=== PATIENT | male | born 1985 | race Caucasian/White ===

== ENCOUNTER 2020-10-05 17:56 | Inpatient (IN) | payer MEDICAID ==
[~2020-10-05] VITALS: Ht 190.5 cm; Wt 119.0 kg
[~2020-10-05 17:56] MED LIST: pantoprazole 40 MG vial IV SCH
--- NOTE | 2020-10-05 18:34 | NUR ---
PT BROUGHT INTO TRIAGE, TOLD REGISTRATION THE PT WAS "GETTING WORSE", VS RECHECK DONE. PT IS SLIGHTLY DIAPHORETIC
[2020-10-05 18:37] LABS: BASOPHILS # (AUTO) 0.1 X10'3 (0-0.2); BASOPHILS % (AUTO) 0.6 % (0-1); EOSINOPHILS # (AUTO) 0.1 X10'3 (0-0.9); EOSINOPHILS % (AUTO) 0.6 % (0-6); HEMATOCRIT 44.1 % (42.0-52.0); LYMPHOCYTES # (AUTO) 1.8 X10'3 (1.1-4.8); LYMPHOCYTES % (AUTO) 11.2 % (21-51); MEAN CORPUSCULAR HEMOGLOBIN 32.7 PG (27.0-31.0); MEAN CORPUSCULAR HGB CONC 33.9 g/dL (33.0-36.5); MEAN CORPUSCULAR VOLUME 96.3 FL (78-98); MEAN PLATELET VOLUME 8.7 FL (7.4-10.4); MONOCYTES # (AUTO) 0.9 X10'3 (0-0.9); MONOCYTES % (AUTO) 5.4 % (2-12); NEUTROPHILS # (AUTO) 13.1 X10'3 (1.8-7.7); NEUTROPHILS % (AUTO) 82.2 % (42-75); PLATELET COUNT 226 X10'3 (140-440); RED BLOOD COUNT 4.58 X10'6 (4.70-6.10); RED CELL DISTRIBUTION WIDTH 13.2 % (11.5-14.5)
[2020-10-05 18:37] LABS: CLARITY,URINE CLEAR (Clear); COLOR,URINE YELLOW (Yellow); GLUCOSE, URINE NEGATIVE (Neg); KETONES,URINE NEGATIVE (Neg); LEUKOCYTE ESTERASE ,URINE NEGATIVE (Neg); NITRITES, URINE NEGATIVE (Neg); OCCULT BLOOD,URINE NEGATIVE (Neg); PROTEIN,URINE NEGATIVE (Neg); UROBILINOGEN,URINE 0.2 E.U/dL (0.2-1.0)
[2020-10-05 18:38] LABS: UA COLLECTION TYPE CLN CATCH MIDSTREAM
[2020-10-05 18:54] LABS: ALANINE AMINOTRANSFERASE 29 U/L (12-78); ALBUMIN 4.1 G/DL (3.4-5.0); ALBUMIN/GLOBULIN RATIO 1.2 (1.1-1.5); ALKALINE PHOSPHATASE 88 IU/L (46-116); ANION GAP 5 (8-16); ASPARTATE AMINO TRANSFERASE 23 U/L (10-37); BILIRUBIN,TOTAL 0.3 MG/DL (0.1-1.0); BLOOD UREA NITROGEN 19 MG/DL (7-18); BUN/CREATININE RATIO 17.4 (5.4-32.0); CALCIUM 8.9 MG/DL (8.5-10.1); CHLORIDE 106 MMOL/L (99-107); CREATININE 1.09 MG/DL (0.60-1.10); GLUCOSE 109 MG/DL (70-104); LIPASE 293 U/L (73-393); POTASSIUM 4.3 MMOL/L (3.5-5.1); SODIUM 140 MMOL/L (135-145); TOTAL CARBON DIOXIDE 28.7 MMOL/L (24-32); TOTAL PROTEIN 7.4 G/DL (6.4-8.2); eGFR 77 ML/MIN
[2020-10-05] MEDS ORDERED: morphine 4 MG/ML inj SYRINge IV ONE ×2 (19:45→20:40)
[2020-10-05] MEDS ORDERED: ondansetron/PF 4mg/2ml inj IV ONE (19:45)
[2020-10-05] MEDS ORDERED: piperacillin/tazo 3.375gm/50ml 50 ML IV ONE (19:45)
--- NOTE | 2020-10-05 20:15 | NUR ---
PT MOVED TO ROOM 17 FOR IV PLACEMENT, THEN TO BED 8 WHEN ROOM WAS CLEAN
[2020-10-05] MEDS ORDERED: normal saline 1000ML IV soln IVB ONE (20:25)
[2020-10-05] MEDS: normal saline 1000ml 1,000 ML IV SCH (20:35)
[2020-10-05] MEDS ORDERED: temazepam 15mg capsule PO PRN (21:00)
[2020-10-05] MEDS ORDERED: magnesium hydroxide 30ml (MOM) UD suspension PO PRN (21:05)
[2020-10-05] MEDS ORDERED: bisacodyl 10mg suppository rectal RC PRN (21:05)
[2020-10-05] MEDS ORDERED: acetaminophen 325mg tablet PO PRN ×2 (21:05)
[2020-10-05] MEDS ORDERED: diphenhydrAMINE 25mg capsule PO PRN (21:05)
[2020-10-05] MEDS ORDERED: diphenhydrAMINE 50 mg/ml inj IV PRN (21:05)
[2020-10-05] MEDS ORDERED: HYDROcodone/acetaminophen 5mg/325mg tablet PO PRN (21:05)
[2020-10-05] MEDS: dextrose 5%-1/2 normal saline 1,000 ML IV SCH ×2 (21:05→22:57)
[2020-10-05] MEDS ORDERED: acetaminophen 650mg rectal suppository RC PRN (21:05)
[2020-10-05] MEDS ORDERED: ondansetron 4mg rapidly disintigrating tab PO PRN (21:05)
[2020-10-05] MEDS ORDERED: ondansetron/PF 4mg/2ml inj IV PRN (21:05)
[2020-10-05] MEDS ORDERED: mag hydrox/Alum hydrox/simeth 30ml oral suspension PO PRN (21:05)
[2020-10-05] MEDS ORDERED: morphine 2 MG/ML inj. syringe IV PRN (21:05)
[2020-10-05] MEDS ORDERED: HYDROmorphone inj. 0.5 MG/0.5 ML DISP.SYRIN IV PRN (21:05)
[2020-10-05] MEDS ORDERED: HYDROcodone/acetaminophen 10/325mg tab PO PRN (21:05)
[2020-10-05] MEDS ORDERED: pantoprazole 40 MG vial IV ONE (23:10)
[2020-10-05] MEDS: pantoprazole 40 MG vial IV SCH (23:26)
[2020-10-05] MEDS ORDERED: NO HOME MEDS (23:33)
[2020-10-06] VITALS (17 sets, daily range): BP systolic 111–165; BP diastolic 59–91
[2020-10-06] MEDS: morphine 2 MG/ML inj. syringe IV PRN ×2 (00:39→04:26)
[2020-10-06] MEDS: normal saline 1000ml 1,000 ML IV SCH (04:02)
[2020-10-06] MEDS: piperacillin/tazo 3.375gm/50ml 50 ML IV SCH ×2 (04:19→12:42)
[2020-10-06] MEDS ORDERED: BUPIVAcaine/PF 2.5 mg/ml (0.25%) 30ml vial ONE (06:55)
[2020-10-06 07:02] LABS: BASOPHILS % (AUTO) 0.2 % (0-1); EOSINOPHILS # (AUTO) 0.1 X10'3 (0-0.9); HEMATOCRIT 41.8 % (42.0-52.0); HEMOGLOBIN 13.9 g/dl (14.0-17.9); LYMPHOCYTES # (AUTO) 3.2 X10'3 (1.1-4.8); LYMPHOCYTES % (AUTO) 26.2 % (21-51); MEAN CORPUSCULAR HEMOGLOBIN 32.2 PG (27.0-31.0); MEAN CORPUSCULAR HGB CONC 33.2 g/dL (33.0-36.5); MONOCYTES % (AUTO) 8.2 % (2-12); NEUTROPHILS # (AUTO) 7.7 X10'3 (1.8-7.7); NEUTROPHILS % (AUTO) 64.4 % (42-75); PLATELET COUNT 198 X10'3 (140-440); RED BLOOD COUNT 4.31 X10'6 (4.70-6.10); RED CELL DISTRIBUTION WIDTH 13.2 % (11.5-14.5)
[2020-10-06] MEDS: pantoprazole 40 MG vial IV SCH (07:04)
[2020-10-06 07:24] LABS: ALANINE AMINOTRANSFERASE 27 U/L (12-78); ALBUMIN 3.6 G/DL (3.4-5.0); ALBUMIN/GLOBULIN RATIO 1.2 (1.1-1.5); ALKALINE PHOSPHATASE 74 IU/L (46-116); ANION GAP 9 (8-16); ASPARTATE AMINO TRANSFERASE 15 U/L (10-37); BILIRUBIN,TOTAL 0.4 MG/DL (0.1-1.0); BLOOD UREA NITROGEN 13 MG/DL (7-18); BUN/CREATININE RATIO 14.3 (5.4-32.0); CALCIUM 8.5 MG/DL (8.5-10.1); CHLORIDE 107 MMOL/L (99-107); CREATININE 0.91 MG/DL (0.60-1.10); GLUCOSE 108 MG/DL (70-104); SODIUM 143 MMOL/L (135-145); TOTAL CARBON DIOXIDE 27.2 MMOL/L (24-32); TOTAL PROTEIN 6.7 G/DL (6.4-8.2); eGFR > 90 ML/MIN
[2020-10-06] MEDS ORDERED: fentaNYL/PF 50MCG/1 ML 2ML syringe IV PRN ×2 (07:25)
[2020-10-06] MEDS ORDERED: hydrALAZINE 20mg/ml inj. IV PRN (07:25)
[2020-10-06] MEDS ORDERED: morphine 2 MG/ML inj. syringe IV PRN (07:25)
[2020-10-06] MEDS ORDERED: ondansetron/PF 4mg/2ml inj IV PRN (07:25)
[2020-10-06] MEDS ORDERED: morphine 4 MG/ML inj SYRINge IV PRN (07:25)
[2020-10-06] MEDS ORDERED: ringers solution, lacted 1,000 ML IV SCH (07:25)
[2020-10-06] MEDS ORDERED: labetalol 20mg/4ml (5mg/ml) syringe IV PRN (07:25)
--- NOTE | 2020-10-06 07:35 | NUR ---
Report called to BENITO Bolden in recovery. Patient has been picked up by OR techs.
[2020-10-06] MEDS ORDERED: midazolam 1 mg/ML 2ml injection ONE (08:00)
[2020-10-06] MEDS ORDERED: fentaNYL/PF 50MCG/1 ML 2ML syringe ONE (08:00)
[2020-10-06] MEDS ORDERED: docusate sod 100mg capsule PO SCH (08:00)
[2020-10-06] MEDS ORDERED: rocuronium 10mg/ml inj IV ONE ×2 (08:02→08:40)
[2020-10-06] MEDS ORDERED: propofol inj 20 ML IV ONE (08:02)
[2020-10-06] MEDS ORDERED: dexamethasone sod phosphate 4mg/ml inj. ONE (08:02)
[2020-10-06] MEDS ORDERED: ondansetron/PF 4mg/2ml inj ONE (08:02)
[2020-10-06] MEDS ORDERED: LIDOcaine 2% (20mg/ml) 5ml vial ONE (08:02)
[2020-10-06] MEDS ORDERED: glycopyrrolate 0.2mg/ml inj ONE (08:02)
[2020-10-06] MEDS ORDERED: neostigmine methylsulfate 1 MG/ML 10ml vial ONE (08:02)
[2020-10-06] MEDS ORDERED: sevoflurane 250ml liquid IH ONE (08:05)
[2020-10-06] MEDS ORDERED: labetalol 20mg/4ml (5mg/ml) syringe IV ONE (08:17)
[2020-10-06] MEDS ORDERED: HYDROcodone/acetaminophen 10/325mg tab PO PRN (09:10)
--- NOTE | 2020-10-06 09:17 | NUR ---
Received from OR via [facility] IN STABLE CONDITION , accompanied by Anesthesiologist and POP SINGER report given by POP SINGER AND Anesthesiolgist. Addendum: 10/06/20 at 0942 by Naila Bryson RN Amended: Links added.
--- NOTE | 2020-10-06 10:27 | NUR ---
PATIENT TRANSPORT Addendum: 10/06/20 at 1044 by Naila Bryson RN Amended: Links added.
--- NOTE | 2020-10-06 10:27 | NUR ---
PATIENT TRANSFERRED FROM PACU TO ROOM 401 IN STABLE CONDITION AFTER REPORT GIVEN TO ANGELO TOMPKINS Addendum: 10/06/20 at 1044 by Naila Bryson RN Amended: Links added.
[2020-10-06] MEDS: dextrose 5%-1/2 normal saline 1,000 ML IV SCH (10:44)
--- NOTE | 2020-10-06 10:45 | NUR ---
REPORT RECEIVED FROM BENITO PADILLA. PATIENT ARRIVED TO FLOOR. VSS. C/O PAIN. LAP SITE X3 COVERED WITH BANDAIDS, CDI. AND CHILDREN AT BEDSIDE.
--- NOTE | 2020-10-06 15:02 | NUR ---
PAGER ID: [phone] MESSAGE: Laina CRAIG [phone]: PATIENT STATES THAT [facility]COS ARE NOT EFFECTIVE FOR PAIN MANAGEMENT. THANKS! [phone]
[2020-10-06] MEDS ORDERED: oxyCODONE/APAP 10/325mg tablet PO ONE (15:10)
[2020-10-06] MEDS ORDERED: OXYC1TAB17 PO (15:16)
[2020-10-06] MEDS ORDERED: AMOX-580 PO (15:16)
--- NOTE | 2020-10-06 16:43 | NUR ---
PATIENT STABLE AND APPROPRIATE FOR DISCHARGE HOME WITH . IV REMOVED, ALL BELONGINGS TAKEN FROM ROOM. NEW RX E-SCRIPTED TO PREFERRED PHARMACY. ALL DISCHARGE INSTRUCTIONS AND EDUCATION GIVEN AND REVIEWED WITH PATIENT, ALL QUESTIONS ANSWERED.
[2020-10-06] MEDS ORDERED: lactobacillus rhamnosus 10,000 MMU CELLS/CAPSULE PO SCH (20:00)
== END 2020-10-06 16:30 | disposition home or self-care (01) | DRG 234 ==
LOC: ER 17:57 → ED HOLD 21:04 → ORTHO 4S 10-06 03:40
PROVIDERS: ADMIT Family Medicine; ATTEND Family Medicine
PROC: 0DTJ4ZZ Resection of Appendix, Percutaneous Endoscopic Approach (ICD-10-PCS; principal; 2020-10-06 08:05)
DX: K35.80 Unspecified acute appendicitis (principal); E86.0 Dehydration; F17.210 Nicotine dependence, cigarettes, uncomplicated; Z20.822 Contact with and (suspected) exposure to COVID-19; I10 Essential (primary) hypertension; R30.0 Dysuria; G47.30 Sleep apnea, unspecified; J45.909 Unspecified asthma, uncomplicated; Z71.6 Tobacco abuse counseling; Z98.52 Vasectomy status
CPT/HCPCS: 36415; 74176; 80053; 81003; 82948; 83690; 85025; 87081; 87635; 96365; 96375; 96376; 99285; A4215; A4618; A7000; C9113; C9803; G0378; J1100; J2001; J2250; J2270; J2405; J2543; J2704; J2710; J3010; J3490; J7030; J7120